=== PATIENT | male | born 1995 | race Caucasian/White ===

== ENCOUNTER 2023-06-13 21:32 | Inpatient (IN) | payer OTHER ==
[~2023-06-13] VITALS: Ht 175.3 cm; Wt 73.5 kg
[2023-06-13] VITALS (81 sets, daily range): BP systolic 136; BP diastolic 83; PULSE 76; TEMP 98.1; O2SAT 95–100
[2023-06-14] VITALS (1201 sets, daily range): BP systolic 104–138; BP diastolic 41–92; PULSE 61–85; TEMP 97.9–98.8; O2SAT 90–100
[2023-06-14 03:34] LABS: BASO % 0.4 % (0.0-2.0); EOS # 0.1 K/mm3 (0.0-0.7); EOS % 1.3 % (0.0-4.0); GRAN # 3.7 K/mm3 (1.4-6.5); GRAN % 49.2 % (42.2-75.2); HEMATOCRIT 42.6 % (42.0-52.0); HEMOGLOBIN 14.9 g/dl (13.5-18.0); LYMPH # 3.1 K/mm3 (1.2-3.4); LYMPH % 41.2 % (20.0-51.0); MEAN CELL VOLUME 83 fl (80.0-100.0); MEAN CORPUSCULAR HEMOGLOBIN 29 pg (27-31); MEAN CORPUSCULAR HGB CONC 35 g/dl (33.0-37.0); MEAN PLATELET VOLUME 10.4 fl (7.4-10.4); MONO # 0.6 K/mm3 (0.1-0.6); MONO % 7.4 % (1.7-9.3); PLATELET COUNT 193 K/mm3 (130-400); RED BLOOD COUNT 5.12 M/mm3 (4.20-5.60); REDCELL DISTRIBUTION WIDTH-CV 11.7 % (11.5-14.5)
[2023-06-14 03:57] LABS: ALBUMIN 3.3 gm/dL (3.5-5.0); BILIRUBIN,TOTAL 0.6 mg/dL (0.2-1.2); CALCIUM 7.9 mg/dL (8.4-10.2); CREATININE, serum 0.88 mg/dL (0.72-1.25); MAGNESIUM 1.7 mg/dL (1.6-2.6); PHOSPHOROUS 2.3 mg/dL (2.3-4.7); POTASSIUM 3.3 mmol/L (3.5-4.5); TOTAL PROTEIN 5.8 gm/dL (6.2-8.1)
[2023-06-14 06:33] LABS: HEMATOCRIT 42.7 % (42.0-52.0); MEAN CELL VOLUME 83 fl (80.0-100.0); MEAN CORPUSCULAR HEMOGLOBIN 29 pg (27-31); MEAN CORPUSCULAR HGB CONC 35 g/dl (33.0-37.0); MEAN PLATELET VOLUME 10.8 fl (7.4-10.4); PLATELET COUNT 187 K/mm3 (130-400); RED BLOOD COUNT 5.12 M/mm3 (4.20-5.60); REDCELL DISTRIBUTION WIDTH-CV 11.8 % (11.5-14.5)
[2023-06-14 06:44] LABS: BILIRUBIN,TOTAL 0.8 mg/dL (0.2-1.2); CREATININE, serum 0.79 mg/dL (0.72-1.25); MAGNESIUM 2.4 mg/dL (1.6-2.6); POTASSIUM 3.6 mmol/L (3.5-4.5); TOTAL PROTEIN 5.3 gm/dL (6.2-8.1)
--- NOTE | 2023-06-14 10:58 | NUR ---
Initial visit; Patient and his family thanked Developmental Psychologist for looking in on him and offering empathy and thanking God for blessing him with healing.
--- NOTE | 2023-06-14 13:01 | NUR ---
BAG FILLER reviewed pt's clinical record and noted he was admitted for an uncontrolled BGL of 539 and a 25lb unexplained wt loss. Pt now has been diagnosed with Type I Diabetes. BAG FILLER met with pt @ his bedside before rounds this morning. Pt appeared s/w drowsy but he was oriented to person, time, place and situation. 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 Pt reports he goes to [facility] when ill and he fills he prescriptions @ the [facility]. BAG FILLER inquired with pt if he had an advance directive, pt stated, "no." When asked if he would be interested in obtaining the documents for review with plan to implement @ a later time, pt declined. Pt plans to return home once medically clear and stated his will transport him home. Pt is scheduled to transfer to the medicine floor later today. SW will continue to follow to anticipate any discharge needs.
--- NOTE | 2023-06-14 21:10 | NUR ---
NURSE REPORT TO ARLIN RN/ PATIENT THEN TRANSPORTED VIA WHEEL CHAIR WITH 1/2 NS WITH 20 OF K ACCOMPANIED IN TOE BY PUMP. AT 2124 PATIENT RELEASED TO MEDICAL FLOOR CARE....
--- NOTE | 2023-06-14 22:35 | NUR ---
patient received from ICU at 2124, alert and oriented x4. self abulate from wheel chair to bed with steady gait. pt oriented to room. LF and RF IVs are patent, sites are clean dry and intact. 1/2 NS with 20mEq KCl running in RF IV. skin has no remarkable findings. pt denies chest pain and shortness of breath as well as dizziness, headache, shakiness or additional pain. pt has no further needs, questions, or concerns at this time. call light within reach, will continue to monitor.
[2023-06-15 00:19] VITALS: BP_SYST 125
[2023-06-15 01:01] VITALS: BP_SYST 125
[2023-06-15 03:37] VITALS: BP 123/76; PULSE 74; TEMP 97.8
[2023-06-15 04:05] VITALS: BP_SYST 123
[2023-06-15 06:56] LABS: CALCIUM 8.1 mg/dL (8.4-10.2); CREATININE, serum 0.66 mg/dL (0.72-1.25); MAGNESIUM 1.7 mg/dL (1.6-2.6)
[2023-06-15 07:12] VITALS: BP 125/74; PULSE 85; TEMP 98.2
[2023-06-15] MEDS ORDERED: LEVEMIR FLEX100 U/ML SQ ×2 (09:46)
[2023-06-15] MEDS ORDERED: NOVOLOG FLEX100 U/ML SQ (09:46)
[2023-06-15] MEDS ORDERED: GLUCOSE TEST ST1 DEV MC (09:49)
[2023-06-15] MEDS ORDERED: LANCETS MC (09:49)
[2023-06-15] MEDS ORDERED: CONTROL SOLUTI1 EAC1 MC (09:49)
[2023-06-15] MEDS ORDERED: FREESTYLE PREC1 EAC5 MC (09:49)
[2023-06-15] MEDS ORDERED: GLUCAGON EMERGEN1 M1 SQ (09:49)
[2023-06-15] MEDS ORDERED: GLUTOSE 1515 GM PO (09:49)
[2023-06-15] MEDS ORDERED: INSULIN PEN NE1 EAC1 MC (09:49)
[2023-06-15] MEDS ORDERED: BD ALCOHOL1 SWA MC (09:49)
[2023-06-15 09:50] VITALS: BP_SYST 125
--- NOTE | 2023-06-15 12:09 | NUR ---
patient recEVIED DISCHARGE INSTRUCTIONS. ACKNOWLEDGED UNDERSTANDING OF INFORMATION, MEDICATOINS, AND FOLLOW UP APPOINTMENTS. AT BEDSIDE. PATIENT IS PLEASANT SEEMS TO BE COMPLIANT WITH CHANGES THAT NEED TO BE MADE WITH NEW TYPE 1 DIABETES DIAGNOSIS PATIENT WAS DISCHARGED WITH NEWSPAPER EDITOR ESCORTING PATIENT AND OUTSIDE.
[2023-06-15] MEDS ORDERED: BASAGLAR K100 UNIT/1 SQ (15:14)
== END 2023-06-15 12:10 | disposition home or self-care (01) | DRG 639 ==
LOC: IMCU 21:32 → ICU 22:28 → MEDICAL 06-14 22:21
PROVIDERS: Physician Assistant; ADMIT Internal Medicine
DX: E10.10 Type 1 diabetes mellitus with ketoacidosis without coma (principal); R63.4 Abnormal weight loss; Z68.23 Body mass index [BMI] 23.0-23.9, adult
CPT/HCPCS: C9113; J1650; J1815; J3475; J3480